=== PATIENT | female | born 1975 | race Hispanic/Latino ===

== ENCOUNTER 2018-07-14 13:28 | Outpatient (CLI) | payer OTHER ==
--- NOTE | 2018-07-14 15:15 | ULT ---
Exam: Pelvic ultrasound including Transabdominal, Transvaginal, And Vascular Duplex with color and spectral Doppler imaging: HISTORY: Adnexal pain, prior cyst, prior fibroid COMPARISON: 07/07/2018 CT FINDINGS: The uterus is9.9 x 6.4 x 6.8 cm. At least 2 intrauterine fibroids up to 3.3 cm. Endometrial thickness:0.9 cm Right ovary:Not adequately seen. Left ovary:2.0 x 2.8 x 3.6 cm, containing a 1.6 x 1.8 cm cyst. No abscess or significant abnormal fluid collection. Vascular duplex examination demonstrates no evidence for ovarian torsion IMPRESSION: At least 2 intrauterine fibroids. Small left ovarian follicle cyst. Nonvisualized right ovary. 0.9 cm endometrium.
== END 2018-07-14 13:29 | disposition home or self-care (01) ==
LOC: SCSULT 13:28
PROVIDERS: ATTEND Family Medicine
DX: N83.201 Unspecified ovarian cyst, right side (principal); D25.9 Leiomyoma of uterus, unspecified; R10.2 Pelvic and perineal pain
CPT/HCPCS: 76856